=== PATIENT | male | born 1990 | race Two or more races ===

== ENCOUNTER 2017-04-19 10:22 | Emergency (ER) | payer SELFPAY ==
[~2017-04-19] VITALS: Ht 175.3 cm; Wt 103.4 kg
[2017-04-19 10:47] VITALS: BP 135/92
== END 2017-04-19 12:50 | disposition home or self-care (01) ==
LOC: ER 10:22
DX: G44.209 Tension-type headache, unspecified, not intractable (principal)
CPT/HCPCS: 70450

== ENCOUNTER 2019-04-04 19:07 | Emergency (ER) | payer SELFPAY ==
[~2019-04-04] VITALS: Ht 172.7 cm; Wt 103.4 kg
[2019-04-04 20:28] VITALS: BP 138/95
[2019-04-04] MEDS ORDERED: BACLOFEN 10 MG TAB PO ONE (21:15)
[2019-04-04] MEDS ORDERED: KETOROLAC TROMETH 60MG/2ML VIAL IM ONE (21:15)
== END 2019-04-04 21:30 | disposition home or self-care (01) ==
LOC: ER 19:13
DX: S33.5XXA Sprain of ligaments of lumbar spine, initial encounter (principal); X58.XXXA Exposure to other specified factors, initial encounter; Y93.89 Activity, other specified; Y99.8 Other external cause status; Y92.89 Other specified places as the place of occurrence of the external cause
CPT/HCPCS: 71046; 96372; 99283; J1885